=== PATIENT | male | born 1955 | race Caucasian/White ===

== ENCOUNTER 2020-11-04 14:12 | Inpatient (IN) | payer OTHER ==
[~2020-11-04] VITALS: Ht 177.8 cm; Wt 87.2 kg
[2020-11-04] VITALS (469 sets, daily range): BP systolic 123–162; BP diastolic 81–118; PULSE 68–137; TEMP 98.1; O2SAT 77–98
[2020-11-04] MEDS ORDERED: GLUCOTROL10 MG PO (16:51)
[2020-11-04] MEDS ORDERED: ASPIRIN 81M81 MG/TA2 PO (16:51)
[2020-11-04] MEDS ORDERED: LIPITOR 40MG TA40 MG PO (16:53)
[2020-11-04] MEDS ORDERED: FARXIGA10 PO (16:55)
[2020-11-04] MEDS ORDERED: ACTOS 45MG45 MG/TAB PO (16:56)
[2020-11-04] MEDS ORDERED: GLUCOPHAGE1000 MG PO (16:57)
--- NOTE | 2020-11-04 19:41 | NUR ---
Assessment complete; Alert and oriented and pleasant with staff. Reporting some upper mid back pain and bilateral side pain due to frequent coughing. States he has shortness of breath with exertion but it has imporved since his arrival; currenlty 96% on 1L NC. HR SR currenlty but does go in and out of A-fib. Denies any other complaints. Called hospitalist to requst PRN medication for pain and his cough.
[2020-11-04 19:46] LABS: INR 1.5 (0.8-3.0); PROTHROMBIN TIME 16.5 SECONDS (9.7-12.8)
[2020-11-04 20:07] LABS: PARTIAL THROMBOPLASTIN TIME 195.8 SECONDS (26.0-37.0)
[2020-11-04 22:40] LABS: PARTIAL THROMBOPLASTIN TIME 33.2 SECONDS (26.0-37.0)
[2020-11-05] VITALS (600 sets, daily range): BP systolic 118–142; BP diastolic 73–96; PULSE 64–140; TEMP 97.6–99; O2SAT 74–100
[2020-11-05 04:43] LABS: BASO % 0.4 % (0.0-2.0); EOS # 0.1 (0.0-0.7); GRAN # 7.1 (1.4-6.5); GRAN % 70.9 % (42.2-75.2); HEMATOCRIT 41.5 % (42.0-52.0); HEMOGLOBIN 13.3 g/dl (13.5-18.0); LYMPH # 1.9 (1.2-3.4); LYMPH % 19.4 % (20.0-51.0); MEAN CELL VOLUME 97 fl (80.0-100.0); MEAN CORPUSCULAR HEMOGLOBIN 31 pg (27.0-31.0); MEAN CORPUSCULAR HGB CONC 32 g/dl (33.0-37.0); MEAN PLATELET VOLUME 10.6 fl (7.4-10.4); MONO # 0.8 (0.1-0.6); MONO % 7.6 % (1.7-9.3); PLATELET COUNT 347 K/mm3 (130-400); REDCELL DISTRIBUTION WIDTH-CV 14.3 % (11.5-14.5)
[2020-11-05 05:00] LABS: ALBUMIN 3.6 gm/dL (3.5-5.0); BILIRUBIN,TOTAL 0.5 mg/dL (0.0-1.0); CALCIUM 9.6 mg/dL (8.4-10.2); CREATININE, serum 0.69 (0.66-1.25); POTASSIUM 4.3 mmol/L (3.4-5.0); TOTAL PROTEIN 6.7 gm/dL (6.4-8.2)
--- NOTE | 2020-11-05 10:00 | NUR ---
HEPARIN DRIP RESTARTED AT PREVIOUS RATE PER . DRIP PREVIOUSLY STOPPED FOR THORACENTESIS.
[2020-11-05 10:02] LABS: PLEURAL FLUID RBC 5000 /mm3 (0-0); PLEURAL FLUID WBC 1845 /mm3
[2020-11-05 10:03] LABS: GLUCOSE,PLEURAL FLUID 136 mg/dL; TOTAL PROTEIN,PLEURAL FLUID 3.4 gm/dL
[2020-11-05 10:05] LABS: PLEURAL FLUID COLOR YELLOW
[2020-11-05 10:06] LABS: PLEURAL FLUID APPEARANCE HAZY
--- NOTE | 2020-11-05 10:12 | NUR ---
Initial visit; Patient thanked Direct Care Supervisor for looking in on him and offering God's blessings and keeping him in her prayers.
--- NOTE | 2020-11-05 11:44 | NUR ---
Implementation Manager met with the patient to complete intake. The patient lives independently in [place] with his , Eneida. The patient denie DME use. The patient's PCP is Dr. De La Garza and patient receives medications from [facility] in with no difficulties. The patient does not have advanced directives but was interested in DPOA-HC form. Form provided. The patient plans to return home at discharge with Eneida providing transporation. The patient is currently on oxygen. There are no additional needs at this time.
--- NOTE | 2020-11-05 19:04 | NUR ---
Noted that previous heparin drip change was incorrect. Heparin should have been increased by 150units but was accidentally decreased. Rate changed to correct rate of 1300units/hr. Next Xa will be continued for 2244. Heparin will stop at 0000 for bronch tomorrow. Endorsed to following RN.
--- NOTE | 2020-11-05 19:45 | NUR ---
Patient resting in bed; alert and oriented and cooperative with staff. Reports shortness of breath is much improved since thoracentesis. No other concerns or complaints at this time. Will continue to monitor; call light left within reach.
--- NOTE | 2020-11-05 22:37 | NUR ---
Ok per hospitalist to inititate LR drip after heparin drip is placed on hold.
[2020-11-06] VITALS (316 sets, daily range): BP systolic 113–138; BP diastolic 71–101; PULSE 71–105; TEMP 97.3–98.1; O2SAT 61–100
--- NOTE | 2020-11-06 04:00 | NUR ---
Patient resting in bed with eyes shut; no concerns or complaints at this time.
[2020-11-06 05:53] LABS: BASO % 0.1 % (0.0-2.0); EOS % 0.1 % (0-4.0); GRAN # 15.2 (1.4-6.5); GRAN % 90.1 % (42.2-75.2); HEMATOCRIT 40.9 % (42.0-52.0); HEMOGLOBIN 13.4 g/dl (13.5-18.0); LYMPH # 1.2 (1.2-3.4); LYMPH % 6.8 % (20.0-51.0); MEAN CELL VOLUME 94 fl (80.0-100.0); MEAN CORPUSCULAR HEMOGLOBIN 31 pg (27.0-31.0); MEAN CORPUSCULAR HGB CONC 33 g/dl (33.0-37.0); MEAN PLATELET VOLUME 10.8 fl (7.4-10.4); MONO # 0.4 (0.1-0.6); MONO % 2.1 % (1.7-9.3); PLATELET COUNT 354 K/mm3 (130-400); RED BLOOD COUNT 4.34 M/mm3 (4.20-5.60); REDCELL DISTRIBUTION WIDTH-CV 13.7 % (11.5-14.5)
[2020-11-06 06:01] LABS: INR 1.2 (0.8-3.0); PROTHROMBIN TIME 13.2 SECONDS (9.7-12.8)
[2020-11-06 06:03] LABS: PARTIAL THROMBOPLASTIN TIME 30.8 SECONDS (26.0-37.0)
[2020-11-06 06:05] LABS: ALBUMIN 3.4 gm/dL (3.5-5.0); BILIRUBIN,TOTAL 0.4 mg/dL (0.0-1.0); CALCIUM 9.7 mg/dL (8.4-10.2); CREATININE, serum 0.59 (0.66-1.25); POTASSIUM 4.3 mmol/L (3.4-5.0); TOTAL PROTEIN 6.5 gm/dL (6.4-8.2)
--- NOTE | 2020-11-06 07:00 | NUR ---
Report received by Noemy STAHL. Pt resting in bed with glassess on, cell phone in hand, television on. Denies any current needs.
--- NOTE | 2020-11-06 07:48 | NUR ---
Report provided to Endo staff. Will call with update on ETA.
--- NOTE | 2020-11-06 08:50 | NUR ---
Rosa at bedside getting pt ready for transfer to Endo.
--- NOTE | 2020-11-06 10:00 | NUR ---
Pt returned to ICU07 X2 Endo staff members, via ICU bed. Pt denies any current pain. VSS at this time on 3L NC. Pt is currently asking about food. Forceful dry cough is noted.
--- NOTE | 2020-11-06 10:20 | NUR ---
Bedside swallow study complete. No s/sx of aspiration, dysphagia or throat pain at this time. Assisted pt with ordering his meal.
--- NOTE | 2020-11-06 12:25 | NUR ---
Pt report provided to Jessica STAHL on medical.
--- NOTE | 2020-11-06 12:44 | NUR ---
Pt assisted X2 staff members via wheelchair to room 352.
--- NOTE | 2020-11-06 13:20 | NUR ---
Pt arrives to medical unit rm 352 from ICU, resting in bed now, resp even and unlabored. No needs reported. Call light in reach.
--- NOTE | 2020-11-06 18:32 | NUR ---
Tele calls to report pt in Afib now with rate ranging from 80s to 150s. EKG order placed per protocol and RT notified. call worker person provider notified. Pt sitting up in chair, denies c/o at this time, was not aware of the rhythm change.
--- NOTE | 2020-11-06 19:45 | NUR ---
Patient assessed at this time. Alert and oriented x 4, and able to make needs known. Reports level 8 pain to back. Given PRN APAP as requested. Denies having SOB and dyspnea. On oxygen at 2 L/min via NC. LS CTA in all lobes, except diminished in right lower lobe. Respirations even and unlabored. HRR. Telemetry in place: back in at 1945 according to teletype telegrapher. Capillary refill less than 3 seconds. Non-tenting skin turgor. BSAx4. Abdomen soft and non-tender. 2+ edema BLE. New INT started to right forearm, and left AC taken out due to swelling in LUE. Voices no questions, needs, or concerns at this time. Resting in bed with call light within reach.
--- NOTE | 2020-11-06 22:38 | NUR ---
Patient continues to have severe pain to back. Moaning, groaning, moving around. Called FAYE Spencer. New order for Tramadol. Given at this time.
--- NOTE | 2020-11-06 23:28 | NUR ---
Continues to have severe pain to back. Called and updated FAYE Spencer. New order for 2mg Morphine received, and given at this time.
[2020-11-07 03:50] VITALS: BP 135/78; PULSE 75; TEMP 97.4
--- NOTE | 2020-11-07 04:50 | NUR ---
Patient reports pain is much better this morning to back. Offered PRN APAP or Tramadol this morning, but denied at this time. Reminded to call and let staff know when ready for it before pain gets too severe. Voiced understanding. Continues on oxygen at 2 L/min via NC. Does report he is feeling a little constipated this morning. Resting in bed with call light within reach.
[2020-11-07 06:43] LABS: HEMATOCRIT 38.9 % (42.0-52.0); HEMOGLOBIN 12.6 g/dl (13.5-18.0); MEAN CELL VOLUME 95 fl (80.0-100.0); MEAN CORPUSCULAR HEMOGLOBIN 31 pg (27.0-31.0); MEAN CORPUSCULAR HGB CONC 32 g/dl (33.0-37.0); MEAN PLATELET VOLUME 11.2 fl (7.4-10.4); PLATELET COUNT 337 K/mm3 (130-400); REDCELL DISTRIBUTION WIDTH-CV 13.6 % (11.5-14.5)
[2020-11-07 07:00] LABS: CALCIUM 9.4 mg/dL (8.4-10.2); CREATININE, serum 0.59 (0.66-1.25); POTASSIUM 4.2 mmol/L (3.4-5.0)
--- NOTE | 2020-11-07 07:10 | NUR ---
Report with FAVIO Saldivar. Pt sitting up in bed, receiving pain medication from mold shifter nurse, denies further needs at this time. Call light in reach.
[2020-11-07 07:47] LABS: HYPOCHROMIA 1+; LYMPHOCYTE 5 % (20.0-51.0); NEUTROPHILS 93 % (42.0-75.2); PLATELET ESTIMATE NORMAL (NORMAL)
[2020-11-07 07:53] VITALS: BP 132/71; PULSE 83; TEMP 97.5
--- NOTE | 2020-11-07 08:50 | NUR ---
Patient was awake and alert during assessment. pleasent and answered all questions appropriately. c/o pain rated 8/10 in lower back that radiates down both legs. PRN analgesics given. patient in bed, call light within easy reach. will continue to monitor
[2020-11-07 11:19] VITALS: BP 128/77; PULSE 67; TEMP 97.4
--- NOTE | 2020-11-07 13:57 | NUR ---
Primary nurse was assisted with [phone] patient care by [employer] student Will Gaspar and [employer] instructor Mindy Lozoya RN-.
[2020-11-07 15:31] VITALS: BP 118/66; PULSE 71; TEMP 97.6
--- NOTE | 2020-11-07 17:30 | NUR ---
Pt sitting up in chair, reports gurgling in bowels and passing flatus but not BM as of yet with pain increasing to low back. PRN pain medication administered. Pt denies further needs at this time, this nurse encourages pt to ambulate around room to increase bowel movement. Call light in reach.
--- NOTE | 2020-11-07 20:15 | NUR ---
Patient assessed at this time. Alert and oriented x 4, and able to make needs known. Complaining of level 8 pain to back, radiating down legs. Given PRN Morphine as requested, and ice pack applied. Peripheral INT to right forearm. Site without redness, warmth, swelling, and pain. Denies having SOB and dsypnea. On oxygen at 2 L/min via NC. LS CTA, except diminished to right lower lobe. Respirations even and unlabored. HRI. Telemetry in place: A-fib, rate controlled. Denies chest pain and discomfort. Capillary refill less than 3 seconds. Non-tenting skin turgor. BSAx4. Abdomen soft and non-tender. Passing gas, and reports he had a small BM, but still feels like he needs to go. Given stool softeners as ordered. 1+ edema BLE. Voices no further questions, needs, or concerns at this time. Resting in recliner with call light within reach.
[2020-11-07 20:20] VITALS: BP 138/76; PULSE 76; TEMP 97.3
--- NOTE | 2020-11-07 22:25 | NUR ---
Patient complaining of level 8 pain to back. Given PRN Morphine as requested for pain.
[2020-11-07 23:55] VITALS: BP 111/71; PULSE 67; TEMP 97.4
--- NOTE | 2020-11-08 01:25 | NUR ---
Patient complaining of pain to back. Given PRN Morphine as requested for pain.
[2020-11-08 03:55] VITALS: BP 120/63; PULSE 66; TEMP 97.8
--- NOTE | 2020-11-08 05:17 | NUR ---
Patient has voiced no further complaints of pain or discomfort at this time, and has not requested any further pain medication. Continues on oxygen at 2 L/min via NC. Telemetry continues to show normal sinus to A-fib, rate controlled. Voices no questing, needs, or concerns at this time. Resting in bed with call light within reach.
[2020-11-08 07:46] VITALS: BP 123/66; PULSE 67; TEMP 97.8
--- NOTE | 2020-11-08 08:13 | NUR ---
PT A&O, PLEASANT. NPO FOR PORT PLACEMENT TODAY, PT DID START EATING BF, ATE 50%PANCAKES PRIOR TO STOPPING. LA PAIN MEDICATION STARTED. NO OTHER NEEDS AT THIS TIME
[2020-11-08 09:58] VITALS: BP 127/84; PULSE 114
--- NOTE | 2020-11-08 10:04 | NUR ---
Cancer gift bag provided to patient at bedside with explanation. He reports that he lives with his and has multiple family members in the area. He is waiting for an MRI to be done so he can eat as he is hungry. He is feeling better and is glad about that. He is aware that future biopsies may be required to clarify diagnosis and that while this is done he will probably have port placed as well.
--- NOTE | 2020-11-08 10:07 | NUR ---
ALIDA RECEIVED CALL FROM TELE SAYING PT HAD GONE INTO AFIB, PT HR RANGING FROM 90'S-120. VITALS TAKEN, PT DENIES SOB, CHEST PAIN, OR FEELING LIKE HIS HEART WAS RACING. MANDEEP MARTINEZ NOTIFIED OF VITALS AND HR RANGING FROM 95-130.
[2020-11-08 11:27] LABS: HEMATOCRIT 41.1 % (42.0-52.0); HEMOGLOBIN 13.4 g/dl (13.5-18.0); MEAN CELL VOLUME 95 fl (80.0-100.0); MEAN CORPUSCULAR HEMOGLOBIN 31 pg (27.0-31.0); MEAN CORPUSCULAR HGB CONC 33 g/dl (33.0-37.0); MEAN PLATELET VOLUME 10.8 fl (7.4-10.4); PLATELET COUNT 344 K/mm3 (130-400); RED BLOOD COUNT 4.31 M/mm3 (4.20-5.60); REDCELL DISTRIBUTION WIDTH-CV 13.9 % (11.5-14.5)
[2020-11-08 11:34] LABS: CALCIUM 9.5 mg/dL (8.4-10.2); CREATININE, serum 0.62 (0.66-1.25)
--- NOTE | 2020-11-08 11:42 | NUR ---
NOTIFIED BY LAB OF CRITICAL RESULT, WBC AT 22.6. JUAN Rangel NITIFIED OF RESULT.
--- NOTE | 2020-11-08 11:50 | NUR ---
CRITICAL CHLORIDE REPORTED TO MANDEEP MARTINEZ AND DR. STILL. NO NEW ORDERS AT THIS TIME.
[2020-11-08] MEDS ORDERED: PROAIR HFA0.09 MG/AC IH (11:55)
[2020-11-08] MEDS ORDERED: RT ADVAIR 128 DISKUS IH (11:55)
[2020-11-08] MEDS ORDERED: ELIQUIS 5MG PO (11:56)
[2020-11-08] MEDS ORDERED: BETAPACE 120MG120 MG PO (11:56)
[2020-11-08] MEDS ORDERED: CARDIZEM CD 12120 MG PO (11:56)
[2020-11-08] MEDS ORDERED: ULTRAM 50MG TAB50 MG PO (11:57)
[2020-11-08] MEDS ORDERED: MS CONTIN 115 MG/TAB PO (11:57)
[2020-11-08] MEDS ORDERED: LASIX 20MG TABL20 MG PO (11:58)
[2020-11-08] MEDS ORDERED: MIRALAX PA17 GM/Dose PO (11:59)
[2020-11-08] MEDS ORDERED: PREDNISONE20 MG PO (11:59)
[2020-11-08 13:02] VITALS: BP 123/72; PULSE 70; TEMP 97.9
--- NOTE | 2020-11-08 13:34 | NUR ---
The patient is ready to d/c today. An exercise ox was ordered. He qualified for 2 liters of oxygen. BETSY met with the patient and his to inform that he qualified and of the different DME companies. The patient and he were agreeable to get the oxygen from [facility]. BETSY contacted and faxed the oxygen order to Nico at [facility]. Awaiting delivery.
--- NOTE | 2020-11-08 13:40 | NUR ---
TO MRI VIA [facility] [place]/ [facility]
--- NOTE | 2020-11-08 13:50 | NUR ---
Primary nurse was assisted with [phone] patient care by [employer] [facility] Gala Wilks and [employer] instructor Mindy Lozoya RN-BC.
[2020-11-08] MEDS ORDERED: OXYGEN NASAL.CANN (14:05)
--- NOTE | 2020-11-08 14:21 | NUR ---
Nico, at [facility], reports that the patient would have a co-pay of $33 a month until he meets his out of pocket costs. They would have to collect money up front. BETSY met with the patient's , Eneida, to inform. Eneida reports that she is able to pay the $33 dollars up front and would like to pursue with getting it. BETSY notified Nico at [facility]. Nico reports that he will be up to the hospital soon to deliver the oxygen. BETSY updated the patient's RN. The patient is to discharge back home with his today, 11/08. No additional needs at this time.
--- NOTE | 2020-11-08 14:46 | NUR ---
RETURN FROM MRI - TELEMETRY LEADS REAPPLIED. PAIN RATED 2/10
--- NOTE | 2020-11-08 16:21 | NUR ---
PATIENT DISCHARGE TO HOME WITH AND DAUGHTER. dc INSTRUCTIONS AND INFORMATION SHEETS GIVEN AND DISCUSSED. NO QUESTIONS AT THIS TIME. dc MEDS TO PHARMACY OF CHOICE IN [place].
== END 2020-11-08 16:05 | disposition home or self-care (01) | DRG 180 ==
LOC: ICU 14:12 → MEDICAL 15:55 → ICU 15:56 → MEDICAL 11-06 13:16
PROVIDERS: Internal Medicine Pulmonary Disease; Physician Assistant; ADMIT Hospitalist
PROC: 0W993ZZ Drainage of Right Pleural Cavity, Percutaneous Approach (ICD-10-PCS; principal; 2020-11-04)
PROC: 0BB68ZX Excision of Right Lower Lobe Bronchus, Via Natural or Artificial Opening Endoscopic, Diagnostic (ICD-10-PCS; 2020-11-06)
PROC: 0BB58ZX Excision of Right Middle Lobe Bronchus, Via Natural or Artificial Opening Endoscopic, Diagnostic (ICD-10-PCS; 2020-11-06)
PROC: 0BD68ZX Extraction of Right Lower Lobe Bronchus, Via Natural or Artificial Opening Endoscopic, Diagnostic (ICD-10-PCS; 2020-11-06)
PROC: 0BD58ZX Extraction of Right Middle Lobe Bronchus, Via Natural or Artificial Opening Endoscopic, Diagnostic (ICD-10-PCS; 2020-11-06)
DX: C34.91 Malignant neoplasm of unspecified part of right bronchus or lung (principal); J96.01 Acute respiratory failure with hypoxia; J98.59 Other diseases of mediastinum, not elsewhere classified; J90 Pleural effusion, not elsewhere classified; I31.3 Pericardial effusion (noninflammatory); E87.3 Alkalosis; E87.1 Hypo-osmolality and hyponatremia; I48.0 Paroxysmal atrial fibrillation; I10 Essential (primary) hypertension; E78.5 Hyperlipidemia, unspecified; E11.9 Type 2 diabetes mellitus without complications; K59.00 Constipation, unspecified; D69.6 Thrombocytopenia, unspecified; D72.829 Elevated white blood cell count, unspecified; J44.9 Chronic obstructive pulmonary disease, unspecified; T38.0X5A Adverse effect of glucocorticoids and synthetic analogues, initial encounter; Z87.891 Personal history of nicotine dependence; Z88.8 Allergy status to other drugs, medicaments and biological substances; Z79.84 Long term (current) use of oral hypoglycemic drugs; Z79.82 Long term (current) use of aspirin; Z68.25 Body mass index [BMI] 25.0-25.9, adult
CPT/HCPCS: 99223-AI; 99232-AI; 99233-AI; A9585; J0456; J0696; J1644; J1815; J1940; J2270; J2704; J2930; J7050; J7120

== ENCOUNTER → 2020-11-18 | Outpatient (CLI) | payer OTHER ==
[~2020-11-18] MED LIST: ACTOS 45MG45 MG/TAB PO; ASPIRIN 81M81 MG/TA2 PO; BETAPACE 120MG120 MG PO; CARDIZEM CD 12120 MG PO; ELIQUIS 5MG PO; FARXIGA10 PO; GLUCOPHAGE1000 MG PO; GLUCOTROL10 MG PO; LASIX 20MG TABL20 MG PO; LIPITOR 40MG TA40 MG PO; MIRALAX PA17 GM/Dose PO; MS CONTIN 115 MG/TAB PO; OXYGEN NASAL.CANN; PREDNISONE20 MG PO; PROAIR HFA0.09 MG/AC IH; RT ADVAIR 128 DISKUS IH; ULTRAM 50MG TAB50 MG PO
== END ==
LOC: ZCOL.LAB 12:00 → EDSTATUS 11-22 09:00 → SDCO 11-22 09:00
DX: Z20.822 Contact with and (suspected) exposure to COVID-19 (principal)

== ENCOUNTER 2020-11-21 18:26 | Emergency (ER) | payer OTHER ==
[~2020-11-21] VITALS: Ht 177.8 cm; Wt 84.1 kg
[2020-11-21 19:38] LABS: HEMOGLOBIN 12.7 g/dl (13.5-18.0); MEAN CELL VOLUME 94 fl (80.0-100.0); MEAN CORPUSCULAR HEMOGLOBIN 31 pg (27.0-31.0); MEAN CORPUSCULAR HGB CONC 33 g/dl (33.0-37.0); MEAN PLATELET VOLUME 10.9 fl (7.4-10.4); PLATELET COUNT 230 K/mm3 (130-400); RED BLOOD COUNT 4.17 M/mm3 (4.20-5.60); REDCELL DISTRIBUTION WIDTH-CV 14.8 % (11.5-14.5)
[2020-11-21 19:46] LABS: INR 1.1 (0.8-3.0); PROTHROMBIN TIME 12.3 SECONDS (9.7-12.8)
[2020-11-21 19:53] LABS: BAND 4 % (0-10); LYMPHOCYTE 3 % (20.0-51.0); NEUTROPHILS 92 % (42.0-75.2); PLATELET ESTIMATE NORMAL (NORMAL)
[2020-11-21 20:05] LABS: ALBUMIN 3.2 gm/dL (3.5-5.0); BILIRUBIN,TOTAL 0.8 mg/dL (0.0-1.0); CALCIUM 9.2 mg/dL (8.4-10.2); CREATININE, serum 0.58 (0.66-1.25); POTASSIUM 5.4 mmol/L (3.4-5.0); TOTAL PROTEIN 6.2 gm/dL (6.4-8.2)
[2020-11-21 20:34] LABS: COLLECTION METHOD CLEAN CATCH
[2020-11-21 20:43] LABS: PH 5 (5-8); SQUAMOUS EPITHELIAL None Seen /hpf; URINE APPEARANCE Clear; URINE BACTERIA None Seen /hpf; URINE BILIRUBIN Negative (NEGATIVE); URINE BLOOD Negative (NEGATIVE); URINE COLOR Yellow; URINE GLUCOSE 3+ (NEGATIVE); URINE KETONE Negative (NEGATIVE); URINE LEUKOCYTE ESTERASE Negative (NEGATIVE); URINE NITRATE Negative (NEGATIVE); URINE PROTEIN(semi-quant) Negative (NEGATIVE); URINE RBC 0-2 /hpf; URINE UROBILINOGEN Negative (NEGATIVE)
[2020-11-21 22:17] VITALS: BP 140/68; PULSE 74; TEMP 97.8
== END 2020-11-21 22:33 | disposition home or self-care (01) ==
LOC: COL.ER 18:26
PROVIDERS: Physician Assistant
DX: K59.00 Constipation, unspecified (principal); E86.0 Dehydration; R10.9 Unspecified abdominal pain; C79.51 Secondary malignant neoplasm of bone; I48.91 Unspecified atrial fibrillation; J44.9 Chronic obstructive pulmonary disease, unspecified; E11.9 Type 2 diabetes mellitus without complications; I10 Essential (primary) hypertension; E78.5 Hyperlipidemia, unspecified; Z87.891 Personal history of nicotine dependence; Z79.01 Long term (current) use of anticoagulants; Z79.82 Long term (current) use of aspirin; Z79.84 Long term (current) use of oral hypoglycemic drugs
CPT/HCPCS: J3010; J7030; Q9967